=== PATIENT | female | born 1975 | race African-American/Black ===

== ENCOUNTER → 2017-10-25 | Outpatient (CLI) | payer BC ==
--- NOTE | 2017-10-25 13:02 | KCIC ---
INDICATION: Memory loss. Forgetfulness. Symptoms progressing, most notably in the last several months. TECHNIQUE: Sagittal T1, axial T1, axial T2, axial FLAIR, axial T2 gradient, coronal T2, and diffusion imaging with ADC map was performed. No comparison is available. FINDINGS: The ventricles are normal in size and configuration for age. There is no acute intracranial hemorrhage or extra-axial fluid collection. There is no mass effect or midline shift. There is no restricted diffusion to suggest an acute infarct. Sagittal midline structures are unremarkable. The pituitary and suprasellar region are unremarkable. Intracranial flow voids are preserved. The included paranasal sinuses are clear. There is minimal mastoid air cell opacification. There is nonspecific fluid in the optic sheaths, can be a finding of elevated intracranial pressures. There are no additional findings to suggest intracranial hypertension. IMPRESSION: 1. No acute intracranial findings. Electronically signed by: Stu Darden MD (10/25/2017 12:58 PM) [id number]
== END | disposition home or self-care (01) ==
LOC: KCIC MRI 11:18
PROVIDERS: ATTEND Psychiatry & Neurology Neurology with Special Qualifications in Child Neurology
DX: F79 Unspecified intellectual disabilities (principal); R41.3 Other amnesia
CPT/HCPCS: 70551